=== PATIENT | female | born 1960 | race African-American/Black ===

== ENCOUNTER 2022-07-18 12:32 | Emergency (ER) | payer OTHER, MEDICAID ==
[~2022-07-18] VITALS: Ht 167.6 cm; Wt 120.0 kg
[2022-07-18 19:50] LABS: EOSINOPHILS % 2.1 % (0.0-5.0); HEMATOCRIT. 43.6 % (36.0-48.0); HEMOGLOBIN. 14.7 g/dL (12.0-16.0); LYMPHOCYTES % 30.2 % (20.0-50.0); MEAN CORPUSCULAR HEMOGLOBIN 30.8 pg (28.0-32.0); MEAN CORPUSCULAR VOLUME 91.2 fL (81.0-99.0); MEAN PLATELET VOLUME 8.2 fl (7.4-10.4); NEUTROPHILS % 58.7 % (40.0-76.0); PLATELET 251 x1000/uL (130-400); RED BLOOD CELL COUNT 4.78 mill/uL (4.2-5.4); RED CELL DISTRIBUTION WIDTH 13.5 % (11.6-14.6)
[2022-07-18 20:00] LABS: CHLORIDE 108 mEq/L (98-107)
[2022-07-18 20:08] LABS: ETHANOL BLOOD < 10 mg/dL
[2022-07-18 21:24] LABS: CLARITY URINE CLEAR (CLEAR); COLOR URINE YELLOW (YELLOW); KETONES URINE NEGATIVE (NEGATIVE); LEUKOCYTE ESTERASE URINE NEGATIVE (NEGATIVE); NITRITE URINE NEGATIVE (NEGATIVE); OCCULT BLOOD URINE NEGATIVE (NEGATIVE); PROTEIN URINE NEGATIVE (NEGATIVE); SPECIFIC GRAVITY URINE 1.019 (1.005-1.030)
[2022-07-18 21:35] LABS: *AMPHETAMINES SCREEN URINE NEGATIVE (NEGATIVE); *BARBITURATES SCREEN URINE NEGATIVE (NEGATIVE); *BENZODIAZEPINES SCREEN URINE NEGATIVE (NEGATIVE); *COCAINE SCREEN URINE NEGATIVE (NEGATIVE); CANNABINOID URINE SCREEN PRESUMTIVE POSITIVE (NEGATIVE); METHADONE URINE SCREEN NEGATIVE (NEGATIVE); OPIATES URINE SCREEN NEGATIVE (NEGATIVE); PHENCYCLIDINE URINE SCREEN PRESUMTIVE POSITIVE (NEGATIVE)
[2022-07-19] MEDS: OLANZAPINE 5MG TABLET PO SCH (21:24)
[2022-07-20] MEDS ORDERED: TOPUD PO ×2 (05:20)
[2022-07-20] MEDS ORDERED: ACETAMINOPHEN 325MG TABLET PO ONE (05:30)
[2022-07-20] MEDS: OLANZAPINE 5MG TABLET PO SCH ×2 (10:57→10:58)
[2022-07-20] MEDS ORDERED: ASPIRIN 81MG EC TABLET PO ONE (18:45)
[2022-07-20 20:17] VITALS: BP 136/88
== END 2022-07-20 21:26 ==
LOC: ER 12:32
DX: M79.604 Pain in right leg (principal); R45.851 Suicidal ideations; F32.9 Major depressive disorder, single episode, unspecified; E11.9 Type 2 diabetes mellitus without complications; F20.9 Schizophrenia, unspecified; Z20.822 Contact with and (suspected) exposure to COVID-19
CPT/HCPCS: 36415; 80053; 80305; 80307; 80320; 80329; 81003; 81025; 85025; 87426; 93971; 99285; C9803; G0480